=== PATIENT | male | born 1945 | race Caucasian/White ===

== ENCOUNTER 2018-12-27 12:23 | Outpatient (CLI) | payer OTHER ==
[~2018-12-27] VITALS: Ht 182.9 cm; Wt 83.5 kg
[2018-12-27] MEDS ORDERED: albuterol 2.5 MG/3 ML nebule NEB PRN (13:15)
== END 2018-12-27 23:59 | disposition home or self-care (01) ==
LOC: RT 12:23
PROVIDERS: ATTEND Orthopaedic Surgery
DX: J42 Unspecified chronic bronchitis (principal); J98.8 Other specified respiratory disorders; Z87.891 Personal history of nicotine dependence; Z79.899 Other long term (current) drug therapy
CPT/HCPCS: 71046; 94060; 94729; 94760

== ENCOUNTER 2023-11-21 12:50 | Outpatient (CLI) | payer OTHER ==
[2023-11-21] MEDS ORDERED: IODIXANOL 320 MG/ML INFUS..BTL 100ML IV ONE (13:45)
== END 2023-11-21 23:59 | disposition home or self-care (01) ==
LOC: RAD 12:50
PROVIDERS: ATTEND Nurse Practitioner Family
DX: I77.810 Thoracic aortic ectasia (principal); I70.8 Atherosclerosis of other arteries
CPT/HCPCS: 71275; 74174; 75572; Q9967